=== PATIENT | female | born 1985 | race Caucasian/White ===

== ENCOUNTER → 2024-11-08 | Outpatient (CLI) | payer OTHER, SELFPAY ==
--- NOTE | 2024-11-08 09:00 | BI_ITS ---
EXAM: DIAG MAMM W/CAD, BILAT N/A CLINICAL HISTORY: F, Age 39 y/o , RIGHT BREAST MASS TECHNIQUE: Procedure Code: [id number] Modality: MG Procedure: DIAG MAMM W/CAD, BILAT. COMPARISON: Baseline study. FINDINGS: TISSUE DENSITY: The breasts are extremely dense, which lowers the sensitivity of mammography. Bilateral Breast Mammographic Findings: No significant masses, calcifications or other abnormalities are identified. No suspicious masses, areas of developing architectural distortion, or suspicious calcifications. BI/DIAG MAMM W/CAD, BILAT IMPRESSION: Unremarkable diagnostic mammogram. With the patient's history of a palpable kesha mp in the upper-outer aspect of the right breast, targeted sonographic correlation recommended. OVERALL FINAL ASSESSMENT BI-RADS 0: INCOMPLETE - NEED ADDITIONAL IMAGING EVALUATION. RECOMMENDATION: Ultrasound Recommended A letter with findings and recommendations will be mailed to the patient. Reading Location: [place] [id number]
--- NOTE | 2024-11-08 09:21 | US_ITS ---
PROCEDURE: BREAST LIMITED UNILATERAL 11/08/2024 REASON FOR EXAM: F, Age 39 y/o , R BREAST MASS COMPARISON: Prior mammogram done earlier in the day.. TECHNIQUE: Procedure Code: [id number] Modality: US Procedure: BREAST LIMITED UNILATERAL. The palpable lump in the inferior lateral aspect of the right breast was examined with ultrasound. FINDINGS: The palpable lump corresponds to a 1.5 cm 1.3 cm x 0.9 cm well-defined hypoechoic solid nodule at the 7 o'clock position of the breast at 7 cm from the nipple. Biopsy recommended US/Breast Limited Unilateral IMPRESSION: The palpable lump corresponds to a 1.5 cm 1.3 cm x 0.9 cm well-defined hypoecho ic solid nodule at the 7 o'clock position of the breast at 7 cm from the nipple. Biopsy recommended. BI-RADS 4: SUSPICIOUS RECOMMENDATION: Biopsy Recommended Reading Location: [place] [id number]
--- OUTSIDE RECORDS SUMMARY | 2024-11-08 11:13 | XMS RPT_ITS | CCD ---
Author Organization [facility] CliniSynj Care Team Providers Care Sales Training Representative Name Role Phone DAMIEN MCCOY Attending Unavailable Herlinda Quispe MD Primary Care Provider JIGNESH JAIMES Attending Unavailable HERLINDA QUISPE Primary Care Unavailab kareem BELTRE, Penny Attending Provider [phone] César RODRÍGUEZ, Penny Attending Penny Warner NP Attending Penny Warner NP Referring Unavailable Herlinda Quispe Primary Care Unavailable Medications Current Medications Medication Drug Class(es) Dates Sig (Normalized) Sig (Original) [id number] 200 actuat albuterol 0.09 mg/actuat metered dose inhaler (3 sources) beta2-Adrenergic Agonist Start: 05-13-2018 take 2 puff(s) by inhalation every four hours as needed for wheezing albuterol HFA (PROAIR HFA) 90 mcg/actuation inhaler Inhale 2 Puffs as instructed every 4 hours as needed for Wheezing/Shortness of Breath. 1 Inhaler 05/13/2018 Active azithromycin 250 mg oral tablet (1 source) Macrolide Antimicrobial Start: 05-04-2024 azithromycin (ZITHROMAX Z-KAIT) 250 mg tablet 2 tablets by mouth first day then 1 tablet the next 4 days 6 tablet 05/04/2024 Active benzonatate 100 mg oral capsule (2 sources) Non-narcotic Antitussive Start: 04-25-2024 take 1 capsule by mouth three times daily as needed benzonatate (TESSALON PERLE) 100 mg capsule Indications: Acute cough Take 1 capsule by mouth three times a day as needed. 30 capsule 04/25/2024 Active dextromethorphan hydrobromide 3 mg/ml / promethazine hydrochloride 1.25 mg/ml oral solution (2 sources) Phenothiazine, Uncompetitive U-hknvvq-Q-aspartat e Receptor Antagonist, Sigma-1 Agonist Start: 04-25-2024 take 5 mL by mouth four times daily as needed Promethazine-DM (PHENERGAN-DM) 6.25-15 mg/5 mL syrup Indications: Acute cough Take 5 mL by mouth four times a day as needed. 118 mL 04/25/2024 Active ELDERBERRY FRUIT (1 source) Start: 10-30-2024 Elderberry Fruit 350 mg capsule Active mg PO October 30, 2024 12:00am triamcinolone acetonide 0.37117 mg/mg topical ointment (2 sources) Corticosteroid Start: 04-25-2024 triamcinolone (KENALOG) 0.025 % ointment Indications: Eczema, unspecified type Apply to affected area as needed. 80 g 1 04/25/2024 Active Problems Active Problems Problem Classification Problem Date Documented Da te Episodic/Chronic Nonmalignant breast conditions (4 sources) Breast lump; Translations: [Unspecified lump in the right breast, unspecified quadrant] Onset: 10-30-2024 10-30-2024 Episodic Comment on above: imaging Other lower respiratory disease (1 source) Cough Onset: 05-17-2018 Episodic Other lower respiratory disease (1 source) Cough; Translations: [Acute cough] 04-25-2024 Episodic Unclassified (1 source) Acute cough; Translations: [Acute cough] Onset: 04-25-2024 Past or Other Problems Problem Classification Problem Date Documented Da te Episodic/Chronic Allergic reactions (5 sources) Eczema; Translations: [Dermatitis, unspecified] Onset: 03-19-2020 03-19-2020 Episodic Results Test Name Value Interpretation Reference Range Facil ity Beck Operator Office Visit Reporton 10-30-2024 Beck Operator Office Visit Report [facility] [address], [address] [place] [address] OFFICE VISIT Date of Service: 10/30/24 MR#: [id number] Acct: [id number] Name: JONATHAN BALDERAS Rep #: [id number] 4 : 1985 Provider: PATT byers Age/Sex: 39/F Location: [facility] Status: Signed Intake Intake Visit Reasons: RIGHT BREAST LUMP *ok BM Chief Complaint: R breast lump Sand Temperer Required: No Is patient in pain?: No Allergies No Known Allergies Allergy (Unverified 10/30/24 11:30) Medications ???Medication ???Instructions ???Recorded ???Confirmed ???Type elderberry fruit 350 mg capsule mg PO 10/30/24 10/30/24 History Is last menstrual period known: No Post menopausal: No Patient : No : No PFSH Surgical History (Updated 10/30/24 @ 11:33 by Erlinda Woody) S/P endometrial ablation Family History (Updated 10/30/24 @ 11:33 by Erlinda Woody) Grandmother Cancer Maternal- Lung Social History (Updated 10/30/24 @ 11:35 by Erlinda Woody) household members: spouse current occupational status: employed current occupation: [place] Smoking Status: Never smoker alcohol intake: current alcohol intake frequency: holidays/special occasions only substance use type: does not use seatbelt use: always do you feel safe at home: Yes additional social history: - [employer] HPI RIGHT BREAST LUMP *ok BM Details: JONATHAN BALDERAS is a 39 year old who presents for new patient with right breast mass X 5 days. Denies pain. No previous mammograms. Last exam prior to 2019 in [place]. No menses since endometrial ablation. History 2 Elective abortions Hx Para 2 Spontaneous abortions Hx # Term Pregnancies Ectopic pregnancies Hx # Pregnancies Multiple births # of living children 2 ROS Const Constitutional: Reports system reviewed and no additional complaints, except as documented : Reports system reviewed and no additional complaints, except as documented Skin Skin/Breast: Reports as per HPI Psych Psych: Reports system reviewed and no additional complaints, except as documented Exam Const General: cooperative and no acute distress Orientation: oriented x3 HENMT Head: normal to inspection Neck Neck: normal visual inspection Chest Breast inspection: normal inspection of the breasts and normal inspection of the axillae Breast palpation: normal palpation of the breasts (left), normal palpation of the axillae and abnormal palpation of the breast (outer lateral posterior right breast with 1cm mobile, firm mass) Resp Effort Inspection: normal respiratory effort Coding Level of Care Code Off vis,new,level 3 Diagnoses Mass of lower outer quadrant of right breast N63.13 Breast mass location: lower outer quadrant Assessment and Plan Assessment and Plan (1) Breast mass, right: Status: Acute Qualifiers: Breast mass location: lower outer quadrant Qualified Code(s): N63.13 - Unspecified lump in the right breast, lower outer quadrant Comment: imaging Orders: Orders Breast Limited Unilateral Today N63.10 - Unspecified lump in the right breast, unspecified quadrant DIAG MAMM W/CAD, BILAT Today N63.10 - Unspecified lump in the right breast, unspecified quadrant Plan Diagnostic bilateral mammogram with right ultrasound Schedule annual exam 10/30/24 1149 Date Penny Gustafson Signature: Date (if applicable) CC: [facility] 05-04-2024 [facility] Telephone (FMUPNE) JONATHAN BALDERAS ([id number]) 1985 F Date Time Provider Department 05/04/24 HERLINDA QUISPE [facility] [place] During your visit today, we recorded the following information about you: Danii Ahumada 05/04/2024 2:38 PM Signed Patient calls She said she still has the cough that she was seen for on 04/25. Cough syrup helps at night, but the tessalon perles have not helped during the day. Nasal spray has not helped the stuffiness. Thank you. [phone] Herlinda Quispe MD 05/04/2024 4:01 PM Signed I recommend a course of abx. [facility] 05/04/2024 4:08 PM Signed Patient was called and a message was left to return call to the office. Phone number provided. SERAFIN PowersoYolanda 05/04/2024 4:12 PM Signed The patient called back and I relayed the message and expressed understanding and had no further questions. Allergies As of Date: 05/04/2024 (No Known Allergies) Date Reviewed: 04/25/2024 Reviewed by: Jignesh Jaimes PA-C - Fully Assessed Reason for Visit: Patient Update [1234] Order(s):azithromycin (ZITHROMAX Z-KAIT) 250 mg tablet2 tablets by mouth first day then 1 tablet the next 4 daysDisp: 6 tabletRfl: 0 Prescriptions as of 05/04/2024 - azithromycin (ZITHROMAX Z-KAIT) 250 mg tablet 2 tablets by mouth first day then 1 tablet the next 4 days - benzonatate (TESSALON PERLE) 100 mg capsule Take 1 capsule by mouth three times a day as needed. - Promethazine-DM (PHENERGAN-DM) 6.25-15 mg/5 mL syrup Take 5 mL by mouth four times a day as needed. - triamcinolone (KENALOG) 0.025 % ointment Apply to affected area as needed. - albuterol HFA (PROAIR HFA) 90 mcg/actuation inhaler Inhale 2 Puffs as instructed every 4 hours as needed for Wheezing/Shortness of Breath. Problem List As Of Date 05/04/2024 Noted Resolved Eczema [L30.9] Prescriptions ordered this encounter Disp Refills Start End AZITHROMYCIN 250 MG TABLET 6 ta* 0 05/04/2024 Si tablets by mouth first day then 1 tablet the next 4 days Encounter Status:Closed by MAUREEN BORREGO on 05/04/24 [facility] CNOVon 04-25-2024 OV Office Visit (FMUPNE ) JONATHAN BALDERAS ([id number]) 1985 F Date Time Provider Department 04/25/24 9:40 AM JIGNESH JAIMES During your visit today, we recorded the following information about you: Temperature Pulse Respiration Blood pressure 98.6 degrees 94/minute 18/minute 114/60 Weight Height 59.7 kg 1.6 m Jignesh Jaimes PA-C 04/25/2024 5:12 PM Signed Jonathan Balderas is a 38 year old female here today acutely because of having: Patient presents with: Cough Pt complains of cough x 2 weeks. Worsened with laying flat. No fever. Some sinus drainage. Had sore throat at onset but this has since resolved. OTC - cold meds such as Dayquil, Nyquil, robitussin, OTC nasal spray. Pt states whenever she gets sick it is the cough that lingers. Also requests medication for an eczema flare. Review of Systems Constitutional: Negative for chills, diaphoresis, fatigue and fever. HENT: Positive for postnasal drip. Negative for congestion, dental problem, ear pain, rhinorrhea, sinus pressure, sinus pain and sore throat. Eyes: Negative. Respiratory: Positive for cough. Negative for chest tightness, shortness of breath and wheezing. Cardiovascular: Negative for chest pain, palpitations and leg swelling. Gastrointestinal: Negative for abdominal pain, constipation, diarrhea, nausea and vomiting. Genitourinary: Negative. Musculoskeletal: Negative for arthralgias, back pain, myalgias and neck pain. Skin: Positive for rash. Negative for wound. Neurological: Negative for dizziness, seizures, syncope, weakness, light-headedness, numbness and headaches. ACTIVE PROBLEM LIST Eczema PAST SURGICAL HISTORY Procedure Laterality Date SECTION HX 11/2009 TONSILLECTOMY AND ADENOIDECTOMY HX 1994 TUBAL LIGATION 11/2009 Social History Tobacco Use Smoking status: Never Smokeless tobacco: Never Substance Use Topics Alcohol use: Never Drug use: Never FAMILY HISTORY Problem Relation Age of Onset Diabetes Maternal Grandmother Diabetes Paternal Grandmother Diabetes Mother No Known Problems Father ALLERGIES No Known Allergies MEDICATIONS: Current Outpatient Medications Medication Sig Dispense Refill albuterol HFA (PROAIR HFA) 90 mcg/actuation inhaler Inhale 2 Puffs as instructed every 4 hours as needed for Wheezing/Shortness of Breath. 1 Inhaler 0 benzonatate (TESSALON PERLE) 100 mg capsule Take 1 capsule by mouth three times a day as needed. 30 capsule 0 Promethazine-DM (PHENERGAN-DM) 6.25-15 mg/5 mL syrup Take 5 mL by mouth four times a day as needed. 118 mL 0 triamcinolone (KENALOG) 0.025 % ointment Apply to affected area as needed. 80 g 1 No current facility-administered medications for this visit. BP 114/60 (BP Site: Right Arm, BP Position: Sitting, BP Cuff Size: Regular Adult) Pulse 94 Temp 37 ?C (98.6 ?F) (Temporal) Resp 18 Ht 160 cm (5' 3) Wt 59.7 kg (131 lb 9.8 oz) SpO2 100% BMI 23.31 kg/m? BMI 23.31 kg/(m2) Physical Exam Vitals reviewed. Constitutional: General: She is not in acute distress. Appearance: Normal appearance. She is not ill-appearing or diaphoretic. HENT: Head: Normocephalic and atraumatic. Right Ear: Tympanic membrane, ear canal and external ear normal. Left Ear: Tympanic membrane, ear canal and external ear normal. Nose: Nose normal. Right Sinus: No maxillary sinus tenderness or frontal sinus tenderness. Left Sinus: No maxillary sinus tenderness or frontal sinus tenderness. Mouth/Throat: Mouth: Mucous membranes are moist. Pharynx: Oropharynx is clear. No oropharyngeal exudate or posterior oropharyngeal erythema. Eyes: General: Right eye: No discharge. Left eye: No discharge. Extraocular Movements: Extraocular movements intact. Conjunctiva/sclera: Conjunctivae normal. Cardiovascular: Rate and Rhythm: Normal rate and regular rhythm. Pulmonary: Effort: Pulmonary effort is normal. Breath sounds: Normal breath sounds. No wheezing, rhonchi or rales. Abdominal: General: Abdomen is flat. Musculoskeletal: Cervical back: Normal range of motion. Lymphadenopathy: Cervical: No cervical adenopathy. Skin: General: Skin is warm and dry. Coloration: Skin is not pale. Findings: No rash. Neurological: General: No focal deficit present. Mental Status: She is alert and oriented to person, place, and time. Gait: Gait normal. Psychiatric: Mood and Affect: Mood normal. Behavior: Behavior normal. ASSESSMENT/PLAN: 1. Acute cough - ICD9: 786.2, ICD10: R05.1 (primary diagnosis) - Patient well appearing, lungs clear on exam - Continue supportive measures at home. Plenty of fluids and rest. - Can continue using OTC nasal spray, antihistamine prn - BENZONATATE 100 MG CAPSULE - PROMETHAZINE-DM 6.25 MG-15 MG/5 ML ORAL SYRUP - Side effects of meds discussed 2. Eczema, unspecified type - ICD9: 692.9, ICD1 (more content not included)... [facility] CNPNon 04-25-2024 [facility] JONATH[facility] BALDERAS ([id number]) 1985 F Date Time Provider Department 04/25/24 HERLINDA QUISPE [facility] [place] During your visit today, we recorded the following information about you: Ashlee Andrews 04/25/2024 8:08 AM Signed Patient called to schedule acute appointment and did not have insurance information and will call back to schedule with update information. Allergies As of Date: 04/25/2024 (No Known Allergies) Date Reviewed: 03/19/2020 Reviewed by: Shilpa Yu) - Fully Assessed Reason for Visit: Appointment [186] Cmt: Acute Prescriptions as of 04/25/2024 - albuterol HFA (PROAIR HFA) 90 mcg/actuation inhaler Inhale 2 Puffs as instructed every 4 hours as needed for Wheezing/Shortness of Breath. Problem List As Of Date 04/25/2024 Noted Resolved Eczema [L30.9] Encounter Status:Closed by ASHLEE ANDREWS on 04/25/24 [facility] [id number] 03-21-2020 COVID19 SEE SEPARATE REPORT [facility] Comment on above: Result Comment: SPECIMEN SENT TO A [facility] SEE SCANNED RESULTS FOR TESTING FACILITY INFORMATION Vital Signs Date Time Vital Sign Value Performing Clinician Faci lity 04-25-2024 09:33-0500 Body height 160 cm Jigneshtorres Jaimes PA-C Work Phone: [facility] 04-25-2024 09:33-0500 Body mass index (BMI) [Ratio] 23.31 kg/m2 Jigneshtorres Jaimes PA-C Work Phone: [facility] 04-25-2024 09:33-0500 Body temperature 98.6 [degF] Jigneshtorres Jaimes PA-C Work Phone: [facility] 04-25-2024 09:33-0500 Body weight 59.7 kg Jignesh Jaimes PA-C Work Phone: [facility] 04-25-2024 09:33-0500 Diastolic blood pressure 60 mm[Hg] Jignesh Jaimes PA-C Work Phone: [facility] 04-25-2024 09:33-0500 Heart rate 94 /min Jigneshtorres Jaimes PA-C Work Phone: [facility] 04-25-2024 09:33-0500 Respiratory rate 18 /min Jignesh Jaimes PA-C Work Phone: [facility] 04-25-2024 09:33-0500 SaO2% (BldA) [Mass fraction] 100 % Jignesh Jaimes PA-C Work Phone: [facility] 04-25-2024 09:33-0500 Systolic blood pressure 114 mm[Hg] Jignesh Jaimes PA-C Work Phone: [facility] Encounters Encounter Date Encounter Type Care Provider Facility Start: 11-08-2024 ambulatory Penny Lindsey NP [facility] ity:[facility] Start: 10-30-2024 End: 10-30-2024 Patient encounter procedure Penny Lindsey NP-C -[facility] Work Phone: Start: 10-30-2024 End: 10-30-2024 ambulatory Penny Lindsey SUPERINTENDENT PIER -[facility] Start: 05-04-2024 End: 05-04-2024 Telephone encounter Herlinda Quispe MD Work Phone: [facility] Comment on above: Patient Update Start: 04-25-2024 End: 04-25-2024 Telephone encounter Herlinda Quispe MD Work Phone: [facility] Comment on above: Appointment (Acute) Start: 04-25-2024 End: 04-25-2024 Patient encounter procedure Jignesh Jaimes PA-C Work Phone: [facility] Comment on above: Acute cough (Primary Dx); Eczema, unspecified type Start: 04-25-2024 End: 04-25-2024 ambulatory JIGNESH JAIMES Facility:[id number] Start: 05-17-2018 [facility] Procedures Date Procedure Procedure Detail Performing Clinician H/O: tubal ligation S/P tubal ligation Dany Lindsey SUPERINTENDENT PIER-C Plan of Treatment Date Care Activity Detail Author Start: 10-24-2023 Covid-19 Vaccine ( season) Covid-19 Vaccine ( season) [facility] Start: 10-24-2023 Influenza vaccination Influenza Vacc ine (#1) [facility] Start: 2006 Screening for malign ant neoplasm of cervix Cervical Cancer Screening [facility] Start: 2004 Hepatitis B Vaccine (1 of 3 - 19+ 3-dose series) Hepatitis B Vaccine (1 of 3 - 19+ 3-dose series) [facility] Start: 2004 Urine microalbumin profile DTaP,Tdap,Td Vaccine (1 - Tdap) [facility] Start: 06-25-2003 Anxiety Screening Anxiety Screening [facility] Start: 06-25-2003 Depression Screening Depression Scre ening [facility] Start: 06-25-2003 Hepatitis C screening Hepatitis C Sc humaira [facility] Start: 06-25-2003 HIV screening HIV Screening [facility] MG Breast - bilatera l [facility] Payers Date Payer Category Payer Self-pay 2022 Private Health Insurance [id number] 2022 Private Health Insurance [id number] Unknown [id number] Unknown [id number] Unknown [id number] Unknown [id number] Social History Date Type Detail Facility Start: 05-09-2018 End: 10-30-2024 Tobacco smoking status VAIS Never smoked tobacco [facility] Start: 05-09-2018 Tobacco use and exposure Smoke less tobacco non-user [facility] Start: 04-25-2024 Alcoholic beverage intake Life time non-drinker (finding) [facility] Start: 04-25-2024 History of Social function [facility] Start: 04-25-2024 [facility] [place] [facility] Has the [employer], or [employer] threatened to shut off services in your home in past 12Mo No [facility] Do you belong to any clubs or organizations such as restorationism groups, unions, fraternal or athletic groups, or school groups? Yes [facility] Are you now , , , , never or living with a partner? [facility] How often to you hav e a drink containing alcohol? Monthly or less [facility] How many standard dr inks containing alcohol do you have on a typical day? 1 or 2 [facility] How often do you hav e 6 or more drinks on 1 occasion? Never [facility] How hard is it for y ou to pay for the very basics like food, housing, medical care, and heating Not hard at all [facility] Do you feel stress - tense, restless, nervous, or anxious, or unable to sleep at night because your mind is troubled all the time - these days [OSQ] Not at all [facility] (I/We) worried ava er (my/our) food would run out before (I/we) got money to buy more. Never true [facility] Start: 1985 Sex assigned at Female [facility] Start: 04-01-2021 Gender identity Identifies as female gender (finding) [facility] Start: 04-01-2021 Sexual orientation Heterosexual (ingrid kwon) [facility] Functional Status Date Assessment Result Facility 04-25-2024 Total score [AUDIT-C] 1 04/26/19 8:26 AM EST User, [email or web address] [facility] 04-25-2024 Within the last year , have you been humiliated or emotionally abused in other ways by your partner or ex-partner? No 04/25/2024 8:26 AM EST User, [email or web address] No [facility] 04-25-2024 Within the last year , have you been afraid of your partner or ex-partner? No 04/25/2024 8:26 AM EST User, Mychart No [facility] 04-25-2024 Within the last year , have you been raped or forced to have any kind of sexual activity by your partner or ex-partner? No 04/25/2024 8:26 AM EST User, [email or web address] No [facility] 04-25-2024 Within the last year , have you been kicked, hit, slapped, or otherwise physically hurt by your partner or ex-partner? No 04/25/2024 8:26 AM EST User, [email or web address] No [facility] 04-25-2024 How often to you hav e a drink containing alcohol? Monthly or less 04/25/2024 8:26 AM EST User, [email or web address] Monthly or less [facility] 04-25-[address] inks containing alcohol do you have on a typical day? 1 or 2 04/25/2024 8:26 AM EST User, [email or web address] 1 or 2 [facility] 04-25-2024 How often do you hav e 6 or more drinks on 1 occasion? Never 04/25/2024 8:26 AM EST User, [email or web address] Never [facility] Clinical Notes 04-25-2024 to 10-30-2024 Telephone Encounter - Yolanda Hennessy - 05/04/2024 4:12 PM EDTTelephone Encounter - Yolanda Hennessy - 05/04/2024 4:12 PM EDTTelephone Encounter - Maureen Borrego MA - 05/04/2024 4:08 PM EDT Note Date & Type Note Facility 10-30-2024 Progress note [facility] 05-04-2024 Telephone encount er Note The patient called back and I relayed the message and expressed understanding and had no further questions. [facility] 05-04-2024 Miscellaneous Notes Formattin g of this note might be different from the original. The patient called back and I relayed the message and expressed understanding and had no further questions. Patient was called and a message was left to return call to the office. Phone number provided. Maureen Borrego MA I recommend a course of abx. Script sent in to [facility] Patient calls She said she still has the cough that she was seen for on 04/25. Cough syrup helps at night, but the tessalon perles have not helped during the day. Nasal spray has not helped the stuffiness. Thank you. [phone] documented in this encounter [facility] 05-04-2024 Telephone encount er Note Patient was called and a message was left to return call to the office. Phone number provided. Maureen Borrego MA [facility] 05-04-2024 Telephone encount er Note I recommend a course of abx. Script sent in to [facility] 05-04-2024 Telephone encount er Note Patient calls She said she still has the cough that she was seen for on 04/25. Cough syrup helps at night, but the tessalon perles have not helped during the day. Nasal spray has not helped the stuffiness. Thank you. [phone] [facility] 04-25-2024 Note HNO ID: [id number] Author: JIGNESH JAIMES PA-C Service: ? Author Type: Physician Risk Management Director Type: Progress Notes Filed: 04/25/2024 17:12 Note Text: Jonathan Balderas is a 38 year old female here today acutely because of having: Patient presents with: Cough Pt complains of cough x 2 weeks. Worsened with laying flat. No fever. Some sinus drainage. Had sore throat at onset but this has since resolved. OTC - cold meds such as Dayquil, Nyquil, robitussin, OTC nasal spray. Pt states whenever she gets sick it is the cough that lingers. Also requests medication for an eczema flare. Review of Systems Constitutional: Negative for chills, diaphoresis, fatigue and fever. HENT: Positive for postnasal drip. Negative for congestion, dental problem, ear pain, rhinorrhea, sinus pressure, sinus pain and sore throat. Eyes: Negative. Respiratory: Positive for cough. Negative for chest tightness, shortness of breath and wheezing. Cardiovascular: Negative for chest pain, palpitations and leg swelling. Gastrointestinal: Negative for abdominal pain, constipation, diarrhea, nausea and vomiting. Genitourinary: Negative. Musculoskeletal: Negative for arthralgias, back pain, myalgias and neck pain. Skin: Positive for rash. Negative for wound. Neurological: Negative for dizziness, seizures, syncope, weakness, light-headedness, numbness and headaches. ACTIVE PROBLEM LIST Eczema PAST SURGICAL HISTORY Procedure Laterality Date SECTION HX 11/2009 TONSILLECTOMY AND ADENOIDECTOMY HX 1994 TUBAL LIGATION 11/2009 Social History Tobacco Use Smoking status: Never Smokeless tobacco: Never Substance Use Topics Alcohol use: Never Drug use: Never FAMILY HISTORY Problem Relation Age of Onset Diabetes Maternal Grandmother Diabetes Paternal Grandmother Diabetes Mother No Known Problems Father ALLERGIES No Known Allergies MEDICATIONS: Current Outpatient Medications Medication Sig Dispense Refill albuterol HFA (PROAIR HFA) 90 mcg/actuation inhaler Inhale 2 Puffs as instructed every 4 hours as needed for Wheezing/Shortness of Breath. 1 Inhaler 0 benzonatate (TESSALON PERLE) 100 mg capsule Take 1 capsule by mouth three times a day as needed. 30 capsule 0 Promethazine-DM (PHENERGAN-DM) 6.25-15 mg/5 mL syrup Take 5 mL by mouth four times a day as needed. 118 mL 0 triamcinolone (KENALOG) 0.025 % ointment Apply to affected area as needed. 80 g 1 No current facility-administered medications for this visit. BP 114/60 (BP Site: Right Arm, BP Position: Sitting, BP Cuff Size: Regular Adult) Pulse 94 Temp 37 ?C (98.6 ?F) (Temporal) Resp 18 Ht 160 cm (5' 3) Wt 59.7 kg (131 lb 9.8 oz) SpO2 100% BMI 23.31 kg/m? BMI 23.31 kg/(m2) Physical Exam Vitals reviewed. Constitutional: General: She is not in acute distress. Appearance: Normal appearance. She is not ill-appearing or diaphoretic. HENT: Head: Normocephalic and atraumatic. Right Ear: Tympanic membrane, ear canal and external ear normal. Left Ear: Tympanic membrane, ear canal and external ear normal. Nose: Nose normal. Right Sinus: No maxillary sinus tenderness or frontal sinus tenderness. Left Sinus: No maxillary sinus tenderness or frontal sinus tenderness. Mouth/Throat: Mouth: Mucous membranes are moist. Pharynx: Oropharynx is clear. No oropharyngeal exudate or posterior oropharyngeal erythema. Eyes: General: Right eye: No discharge. Left eye: No discharge. Extraocular Movements: Extraocular movements intact. Conjunctiva/sclera: Conjunctivae normal. Cardiovascular: Rate and Rhythm: Normal rate and regular rhythm. Pulmonary: Effort: Pulmonary effort is normal. Breath sounds: Normal breath sounds. No wheezing, rhonchi or rales. Abdominal: General: Abdomen is flat. Musculoskeletal: Cervical back: Normal range of motion. Lymphadenopathy: Cervical: No cervical adenopathy. Skin: General: Skin is warm and dry. Coloration: Skin is not pale. Findings: No rash. Neurological: General: No focal deficit present. Mental Status: She is alert and oriented to person, place, and time. Gait: Gait normal. Psychiatric: Mood and Affect: Mood normal. Behavior: Behavior normal. ASSESSMENT/PLAN: 1. Acute cough - ICD9: 786.2, ICD10: R05.1 (primary diagnosis) - Patient well appearing, lungs clear on exam - Continue supportive measures at home. Plenty of fluids and rest. - Can continue using OTC nasal spray, antihistamine prn - BENZONATATE 100 MG CAPSULE - PROMETHAZINE-DM 6.25 MG-15 MG/5 ML ORAL SYRUP - Side effects of meds discussed 2. Eczema, unspecified type - ICD9: 692.9, ICD10: L30.9 - Discussed skin care of rash - TRIAMCINOLONE ACETONIDE 0.025 % TOPICAL OINTMENT Follow-up as needed Jignesh Jaimes PA-C Portions of this note have been entered by ancillary staff. I have reviewed and when necessary edited, so that they are an adequate record of my encounter with t (more content not included)... [facility] 04-25-2024 History of Presen t illness Narrative Jonathan Balderas is a 38 year old female here today acutely because of having: Patient presents with: Cough Pt complains of cough x 2 weeks. Worsened with laying flat. No fever. Some sinus drainage. Had sore throat at onset but this has since resolved. OTC - cold meds such as Dayquil, Nyquil, robitussin, OTC nasal spray. Pt states whenever she gets sick it is the cough that lingers. Also requests medication for an eczema flare. Review of Systems Constitutional: Negative for chills, diaphoresis, fatigue and fever. HENT: Positive for postnasal drip. Negative for congestion, dental problem, ear pain, rhinorrhea, sinus pressure, sinus pain and sore throat. Eyes: Negative. Respiratory: Positive for cough. Negative for chest tightness, shortness of breath and wheezing. Cardiovascular: Negative for chest pain, palpitations and leg swelling. Gastrointestinal: Negative for abdominal pain, constipation, diarrhea, nausea and vomiting. Genitourinary: Negative. Musculoskeletal: Negative for arthralgias, back pain, myalgias and neck pain. Skin: Positive for rash. Negative for wound. Neurological: Negative for dizziness, seizures, syncope, weakness, light-headedness, numbness and headaches. ACTIVE PROBLEM LIST Eczema PAST SURGICAL HISTORY Procedure Laterality Date SECTION HX 11/2009 TONSILLECTOMY AND ADENOIDECTOMY HX 1994 TUBAL LIGATION 11/2009 Social History Tobacco Use Smoking status: Never Smokeless tobacco: Never Substance Use Topics Alcohol use: Never Drug use: Never FAMILY HISTORY Problem Relation Age of Onset Diabetes Maternal Grandmother Diabetes Paternal Grandmother Diabetes Mother No Known Problems Father ALLERGIES No Known Allergies MEDICATIONS: Current Outpatient Medications Medication Sig Dispense Refill albuterol HFA (PROAIR HFA) 90 mcg/actuation inhaler Inhale 2 Puffs as instructed every 4 hours as needed for Wheezing/Shortness of Breath. 1 Inhaler 0 benzonatate (TESSALON PERLE) 100 mg capsule Take 1 capsule by mouth three times a day as needed. 30 capsule 0 Promethazine-DM (PHENERGAN-DM) 6.25-15 mg/5 mL syrup Take 5 mL by mouth four times a day as needed. 118 mL 0 triamcinolone (KENALOG) 0.025 % ointment Apply to affected area as needed. 80 g 1 No current facility-administered medications for this visit. BP 114/60 (BP Site: Right Arm, BP Position: Sitting, BP Cuff Size: Regular Adult) Pulse 94 Temp 37 C (98.6 F) (Temporal) Resp 18 Ht 160 cm (5' 3) Wt 59.7 kg (131 lb 9.8 oz) SpO2 100% BMI 23.31 kg/m BMI 23.31 kg/(m^2) Physical Exam Vitals reviewed. Constitutional: General: She is not in acute distress. Appearance: Normal appearance. She is not ill-appearing or diaphoretic. HENT: Head: Normocephalic and atraumatic. Right Ear: Tympanic membrane, ear canal and external ear normal. Left Ear: Tympanic membrane, ear canal and external ear normal. Nose: Nose normal. Right Sinus: No maxillary sinus tenderness or frontal sinus tenderness. Left Sinus: No maxillary sinus tenderness or frontal sinus tenderness. Mouth/Throat: Mouth: Mucous membranes are moist. Pharynx: Oropharynx is clear. No oropharyngeal exudate or posterior oropharyngeal erythema. Eyes: General: Right eye: No discharge. Left eye: No discharge. Extraocular Movements: Extraocular movements intact. Conjunctiva/sclera: Conjunctivae normal. Cardiovascular: Rate and Rhythm: Normal rate and regular rhythm. Pulmonary: Effort: Pulmonary effort is normal. Breath sounds: Normal breath sounds. No wheezing, rhonchi or rales. Abdominal: General: Abdomen is flat. Musculoskeletal: Cervical back: Normal range of motion. Lymphadenopathy: Cervical: No cervical adenopathy. Skin: General: Skin is warm and dry. Coloration: Skin is not pale. Findings: No rash. Neurological: General: No focal deficit present. Mental Status: She is alert and oriented to person, place, and time. Gait: Gait normal. Psychiatric: Mood and Affect: Mood normal. Behavior: Behavior normal. ASSESSMENT/PLAN: 1. Acute cough - ICD9: 786.2, ICD10: R05.1 (primary diagnosis) - Patient well appearing, lungs clear on exam - Continue supportive measures at home. Plenty of fluids and rest. - Can continue using OTC nasal spray, antihistamine prn - BENZONATATE 100 MG CAPSULE - PROMETHAZINE-DM 6.25 MG-15 MG/5 ML ORAL SYRUP - Side effects of meds discussed 2. Eczema, unspecified type - ICD9: 692.9, ICD10: L30.9 - Discussed skin care of rash - TRIAMCINOLONE ACETONIDE 0.025 % TOPICAL OINTMENT Follow-up as needed Jignesh Jaimes PA-C Portions of this note have been entered by ancillary staff. I have reviewed and when necessary edited, so that they are an adequate record of my encounter with this patient. documented in this encounter [facility] 04-25-2024 Telephone encount er Note Patient called to schedule acute appointment and did not have insurance information and will call back to schedule with update information. [facility] 04-25-2024 Miscellaneous Notes Formattin g of this note might be different from the original. Patient called to schedule acute appointment and did not have insurance information and will call back to schedule with update information. documented in this encounter [facility] Evaluation note Diagnosis Acute cough- Primary Eczema, unspecified type [facility] Diagnosis Onset Date Resolution Status Admit Date Breast mass, right acute Septem 2024 11:24am S/P tubal ligation noneactive Octem 2024 11:24am [facility] Work Phone: [employer] note Author Penny Lindsey [facility] Note Date/Time October 30, 2024 11:48am [facility] [address] [place] [address], [address] [place] [address] OFFICE VISIT Date of Service: 10/30/24 MR#: [id number] Acct: [id number] Name: JONATHAN BALDERAS Rep #: [id number] : 1985 Provider: PATT Lindsey Age/Sex: 39/F [place] [facility] [place]: Signed Intake Intake Visit Reasons: RIGHT BREAST LUMP *ok BM Chief Complaint: R breast lump Sand Temperer Required: No Is patient in pain?: No Allergies No Known Allergies Allergy (Unverified 10/30/24 11:30) Medications ?Medication ?Instructions ?Recorded ?Confirmed ?Type elderberry fruit 350 mg capsule mg PO 10/30/24 5 History Is last menstrual period known: No Post menopausal: No Patient : No : No PFSH Surgical History (Updated 10/30/24 @ 11:33 by Erlinda Woody) S/P endometrial ablation Family History (Updated 10/30/24 @ 11:33 by Erlinda Woody) Grandmother Cancer Maternal- Lung Social History (Updated 10/30/24 @ 11:35 by Erlinda Woody) household members: spouse current occupational status: employed current occupation: [place] Smoking Status: Never smoker alcohol intake: current alcohol intake frequency: holidays/special occasions only substance use type: does not use seatbelt use: always do you feel safe at home: Yes additional social history: - [employer] HPI RIGHT BREAST LUMP *ok BM Details: JONATHAN BALDERAS is a 39 year old who presents for new patient with right breast mass X 5 days. Denies pain. No [place]ograms[place] since endometrial ablation. History 2 Elective abortions Hx Para 2 Spontaneous abortions Hx # Term Pregnancies Ectopic pregnancies Hx # Pregnancies Multiple births # of living children 2 ROS Const Constitutional: Reports system reviewed and no additional complaints, except as documented : Reports system reviewed and no additional complaints, except as documented Skin Skin/Breast: Reports as per HPI Psych Psych: Reports system reviewed and no additional complaints, except as documented Exam Const General: cooperative and no acute distress Orientation: oriented x3 HENMT Head: normal to inspection Neck Neck: normal visual inspection Chest Breast inspection: normal inspection of the breasts and normal inspection of theaxillae Breast palpation: normal palpation of the breasts (left), normal palpation of the axillae and abnormal palpation of the breast (outer lateral posterior right breast with 1cm mobile, firm mass) Resp Effort & Inspection: normal respiratory effort Coding Level of Care Code Off vis,new,level 3 Diagnoses Mass of lower outer quadrant of right breast N63.13 Breast mass location: lower outer quadrant Assessment and Plan Assessment and Plan (1) Breast mass, right: Status: Acute Qualifiers: Breast mass location: lower outer quadrant Qualified Code(s): N63.13 - Unspecified lump in the right breast, lower outer quadrant Comment: imaging Orders: Orders Breast Limited Unilateral Today N63.10 - Unspecified lump in the right breast, unspecified quadrant DIAG MAMM W/CAD, BILAT Today N63.10 - Unspecified lump in the right breast, unspecified quadrant Plan Diagnostic bilateral mammogram with right ultrasound Schedule annual exam 10/30/24 2921 <Electronically signed by Penny roper SUPERINTENDENT PIER SUPERINTENDENT PIER-C> Date _ Penny Lindsey NP SUPERINTENDENT PIER-C Cosigner Signature: Date (if applicable) CC: ~ [facility] Work Phone: Reason for referral (narrative)No reason for referral information [facility] Work Phone: Summary Purpose Family History No Family History Records Found Relationship Condition Age at Onset Recorded Date/T manisha grandmother Malignant neoplasm Unknown Advance Directives No Advanced Directives Records FoundNo Advanced Directives Records FoundNo Advanced Directives Records FoundNo Advanced Directives Records Found Chief Complaint and Reason for Visit Chief Complaint Admit Date RIGHT BREAST LUMP *ok BM October 30, 2024 11:24am Reason for Visit Admit Date Breast mass, right October 30, 2024 11:24am S/P tubal ligation October 30, 2024 11:24am Additional Source Comments INFORMATION SOURCE (unrecogn ized section and content) DATE CREATED AUTHOR 05/19/2018 [facility] DATE CREATED AUTHOR AUTHOR'S ORGANIZ ATION 05/01/2020 [facility] DATE CREATED AUTHOR AUTHOR'S ORGANIZ ATION 05/07/2024 [facility] DATE CREATED AUTHOR AUTHOR'S ORGANIZ ATION 11/05/2024 [facility] Source Comments (unrecognize d section and content) In the event this informatio n is protected by the Federal Confidentiality of Alcohol and Drug Abuse Patient Records regulations: The Federal rules restrict any use of the information to criminally investigate or prosecute any alcohol or drug abuse patient.[facility] the event this information is protected by the Federal Confidentiality of Alcohol and Drug Abuse Patient Records regulations: The Federal rules restrict any use of the information to criminally investigate or prosecute any alcohol or drug abuse patient.[facility] the event this information is protected by the Federal Confidentiality of Alcohol and Drug Abuse Patient Records regulations: The Federal rules restrict any use of the information to criminally investigate or prosecute any alcohol or drug abuse patient.[facility] Reason for Visit (unrecogniz ed section and content) Reason Comments Appointment Acute Reason Comments Cough Reason Comments Patient Update Care Teams (unrecognized sec tion and content) Sales Training Representative Relationship Specialty Start Date End Date Herlinda Quispe MD [address] [place] [phone] PCP - General Family Medicine 03/18/18 Sales Training Representative Relationship Specialty Start Date End Date Herlinda Quispe MD [address] [place] [phone] PCP - General Family Medicine 03/18/18 Sales Training Representative Relationship Specialty Start Date End Date Herlinda Quispe MD [address] [place] [phone] PCP - General Family Medicine 03/18/18 Team Status: Inactive Member Role/Relationship Status Dates VERO Romo NPC Attending Provider Active Start: October 30, 2024 End: October 30, 2024 Goals (unrecognized section and content) Goals may be documented in a n alternate section FOR RECORDS PERTAINING TO PATIENTS WHO ARE OR HAVE BEEN ENROLLED IN A CHEMICAL DEPENDENCY/SUBSTANCEABUSE PROGRAM, SOME INFORMATION MAY BE OMITTED. This clinical summary was aggregated from multiple sources. Caution should be exercised in using it in the provision of clinical care. This summary normalizes information from multiple sources, and as a consequence, information in this document may materially change the coding, format and clinical context of patient data. In addition, data may be omitted in some cases. CLINICAL DECISIONS SHOULD BE BASED ON THE PRIMARY CLINICAL RECORDS. [facility] [facility]. provides no warranty or guarantee of the accuracy or completeness of information in this document.
== END | disposition home or self-care (01) ==
PROVIDERS: PCP Family Medicine; Referring Provider Nurse Practitioner Women's Health; Visit Provider Nurse Practitioner Women's Health
DX: N63.10 Unspecified lump in the right breast, unspecified quadrant (principal)
CPT/HCPCS: 76642; 77062; 77066; G0279

== ENCOUNTER → 2024-11-10 | Outpatient (CLI) | payer OTHER, SELFPAY ==
--- NOTE | 2024-11-10 08:18 | BRBX_PTH ---
PATIENT: AIDEN CASH LOC: [facility] U#:[id number] AGE/SX: 39/F ROOM: RE11/10/[address]: Dr. Renay Blood MD : 1985 BED: DIS: 11/10/2024 SPEC #: [id number] RECD: 11/10/24 11:12 STATUS: TAE REMike #: [id number] RAINER: 11/10/24 08:[address]: Renay Blood DEPT: SURGICAL PATHOLOGY RECD BY: Kaiden Delgado ENTERED: 11/10/24 12:53 SP TYPE: BREAST BX OTHR DR: Dr. Kulwinder Pedraza MD Tissues: A - Right breast, NOS Procedures: Surgery Specimen Level V HEADER OPERATION: Right breast biopsy PRE-OP DIAGNOSIS: Right breast TISSUE SUBMITTED: A- Right breast, 7o'clock, 7cm from nipple MICROSCOPIC DIAGNOSIS A. Breast, right, "nodule", 7 o'clock, 7 CMFN, core biopsy: - Fibroadenoma. - Adjacent benign breast tissue with focal microcalcifications - see Comment. COMMENT Selected slides/images were reviewed in intradepartmental consultation by Brenda Vale and Ottoniel ([facility] pathology division, [facility]). MICROSCOPIC DESCRIPTION Slides are reviewed. GROSS DESCRIPTION A. Received in formalin labeled with the patient's name and date of . Designated as " R breast nodule" are 3 fowler-pink to yellow tissue cores, 0.9 cm to 1.5 cm in length by 0.1 cm in diameter. Entirely submitted in 1 cassette. Cold ischemic time: <1-minuteFormalin fixation time: 59 hours, 15 minutes [place] 11/10/2024 CPT:46875
== END | disposition home or self-care (01) ==
LOC: LABSPEC 11:17
PROVIDERS: PCP Family Medicine; Referring Provider Surgery; Visit Provider Surgery
DX: D24.1 Benign neoplasm of right breast (principal)
CPT/HCPCS: 88307

== ENCOUNTER → 2024-12-05 | Outpatient (CLI) | payer OTHER, SELFPAY ==
[2024-12-12 14:09] LABS: HPV APTIMA, High Risk Negative (Negative)
== END | disposition home or self-care (01) ==
LOC: LABSPEC 16:00
PROVIDERS: PCP Family Medicine; Visit Provider Nurse Practitioner Women's Health
DX: Z12.4 Encounter for screening for malignant neoplasm of cervix (principal)
CPT/HCPCS: 87624; 88175; G0145